=== PATIENT | male | born 1980 | race Two or more races ===

== ENCOUNTER 2024-10-01 19:14 | Emergency (ER) | payer MEDICAID, SELFPAY ==
[2024-10-01 19:34] VITALS: BP 158/85; PULSE 89; RESP 18; TEMP 36.6; O2SAT 97
--- NOTE | 2024-10-01 19:43 | XR_ITS ---
Examination: CT abdomen and pelvis without contrast. Coronal 3-D reconstructions. Sagittal 2-D reconstructions. Date and time of exam:October 01, 2024 2016 hrs. Indications: Lower abdominal pain with urination beginning 4 days ago CTDI: vol (mGy): 14.5 DLP: (mGycm): 897 Technique: Axial images of the abdomen have been obtained, 3 mm slice thickness Intravenous contrast material has not been administered. Low dose protocols were performed. One or more of the following dose reduction techniques were used; automated exposure control, adjustment of the mA and/or KV according to patient size, use of iterative reconstruction technique. Findings: Liver mildly irregular contour no focal liver lesions Contracted gallbladder No pancreatic or adrenal mass No splenic lesion No renal or ureteral calculi, no hydronephrosis Aorta normal size Normal appendix 15 mm fat-containing umbilical hernia No bowel obstruction Colonic diverticulosis, no diverticulitis Markedly abnormal thickening of the anterior urinary bladder wall, measuring up to 14 mm Transverse prostate dimension 4 cm : Bodies, soft tissue posterior to the lower lumbar spine Impression: No renal or ureteral calculi, no hydronephrosis Normal appendix Markedly abnormal thickening of the anterior urinary bladder wall, differential would include cystitis, early bladder carcinoma, recommend urology consultation
[2024-10-01 20:24] LABS: Collection Type, Urine Clean Catch; WBC,Urine 0 /hpf (0-5)
[2024-10-01 20:32] LABS: Basophils # (Auto) 0.1 Thou/mm3 (0.0-0.2); Basophils % (Auto) 1 % (0-2.5); Eosinophils # (Auto) 0.6 Thou/mm3 (0.0-0.5); Eosinophils % (Auto) 6 % (0-10); Hematocrit 44.1 % (41.0-53.0); Hemoglobin 15.1 g/dL (13.5-16.0); Immature Granulocytes % (Auto) 0 % (0-0); Immature Granulocytes Auto 0.04 Thou/mm3 (0.00-0.00); Lymphocytes # (Auto) 3.2 Thou/mm3 (1.0-4.8); Lymphocytes % (Auto) 31 % (10-50); Mean Corpuscular HGB Conc 34.2 g/dl (31.0-37.0); Mean Corpuscular Volume 85 fL (80-100); Monocytes # (Auto) 0.7 Thou/mm3 (0.0-0.8); Monocytes % (Auto) 6 % (0-12); Neutrophils # (Auto) 5.8 Thou/mm3 (1.8-7.7); Neutrophils % (Auto) 56 % (37-80); Nucleated Red Blood Cell % 0 /100 WBC (0); Platelet Count 237 Thou/mm3 (140-440); RDW Standard Deviation 42.2 fL (35.1-43.9); Red Blood Count 5.21 Miln/mm3 (4.50-5.90); White Blood Count 10.3 Thou/mm3 (3.8-10.6)
[2024-10-01 20:34] LABS: Bilirubin,Urine Negative (Negative); Blood,Urine Negative (Negative); Clarity,Urine Clear (Clear/Hazy); Color,Urine Colorless (Lt Yel-Yel); Culture Indicated,Urine Not Indicated; Glucose, Urine Negative (Negative); Ketones,Urine Negative (Negative); Leukocyte Esterase,Urine Negative (Negative); Nitrite,Urine Negative (Negative); Protein,Urine Negative (Neg - Trace); RBC,Urine < 1 /hpf (0-3); Specific Gravity,Urine 1.006 (1.001-1.035); Squamous Epithelial Cell,Urine < 1 /hpf (0-5); Urobilinogen,Urine Negative mg/dL (0.0-1.0)
[2024-10-01 20:41] LABS: Amphetamine/Methamp Scrn,U Negative (Negative); Barbiturate Screen,Urine Negative (Negative); Benzodiazepines Screen,Urine Negative (Negative); Benzoylecgonine Screen, Ur Negative (Negative); Fentanyl Screen,Urine Negative (Negative); Opiate Screen,Urine Negative (Negative); THC Screen,Urine Negative (Negative)
--- NOTE | 2024-10-01 20:44 | EDNOTE_ITS ---
ED Male Genitalurinary RME/HPI General Chief complaint: Abdominal Pain Stated complaint: LOWER ABD PAIN, PAIN IN URINATION Time Seen by Provider: 10/01/24 19:42 Arrival date/time: 10/01/24 19:14 44M with history of DM and alcohol use presents to ED with 10 days of lower ab/pelvic pain and dysuria. Patient denies testicular/genital pain, discharge, and concern for STD. Limitations: no limitations Related Data Home Medications ?Medication ?Instructions ?Recorded ?Confirmed chlordiazepoxide HCl 10 mg capsule 10 - 20 mg PO QID P RN ALCOHOL 09/17/13 WITHDRAWAL #0 caps ranitidine HCl 150 mg tablet 150 mg PO BID #0 tabs (Zantac) Previous Rx's ?Medication ?Instructions ?Recorded omeprazole 20 mg capsule,delayed 20 mg PO QAM #30 tabs 09/17/13 release ciprofloxacin HCl 500 mg tablet 500 mg PO BID #14 tabs 02/15/23 (Cipro) Allergies Allergy/AdvReac Type Severity Reaction Status Date / Time No Known Allergies Allergy Verified 10/01/24 20:46 Review of Systems Review of Systems Systems Reviewed: All systems reviewed, normal except as documented Constitutional Constitutional: Reports system reviewed and no additional complaints, except as documented, Denies fever(s) and Denies headache(s) ENT Ears, Nose, Mouth, and Throat: Denies disequilibrium and Denies headache(s) Cardiovascular Cardiovascular: Reports system reviewed and no additional complaints, except as documented, Denies chest pain and Denies dyspnea Respiratory Respiratory: Reports system reviewed and no additional complaints, except as documented, Denies cough and Denies dyspnea Gastrointestinal Gastrointestinal: Reports system reviewed and no additional complaints, except as documented, Denies abdominal pain, Denies nausea and Denies vomiting Genitourinary Genitourinary: Reports as per HPI, Reports dysuria and Reports flank pain Neurologic Neurologic: Reports system reviewed and no additional complaints, except as documented, Denies confusion, Denies disequilibrium and Denies headache(s) Psychiatric Psychiatric: Denies confusion Past Medical History Past Medical History CARDIAC: Negative Congestive Heart Failure RESPIRATORY: Negative Chronic Obstructive Pulmonary Disease (COPD) GENITOURINARY: Negative Renal Disease ENDOCRINE: Positive Diabetes Mellitus Type 2; Negative Diabetes Mellitus Type 1 Social History SMOKING STATUS: Never smoker ED Exam General Limitations: Present no limitations General appearance: Present alert and in no apparent distress Head Head exam: Present atraumatic Eye Eye exam: Present normal appearance, PERRL and EOMI ENT ENT exam: Present normal exam, normal oropharynx and mucous membranes moist Neck Neck exam: Present normal inspection, full ROM and trachea midline Chest Chest inspection: Present normal inspection and symmetric chest wall rise Respiratory Respiratory exam: Present normal lung sounds bilaterally Cardiovascular Cardiovascular exam: Present regular rate, normal rhythm and normal heart sounds Abdominal Exam Abdominal exam: Present soft and normal bowel sounds Extremities Exam Extremities exam: Present normal inspection and full ROM Back Exam Back exam: Present normal inspection and full ROM Neurological Exam Neurological exam: Present alert, oriented X3 and CN II-XII intact Psychiatric Psychiatric exam: Present normal affect and normal mood Skin Skin exam: Present warm, dry, intact and normal color Course Quality Measures none Orders Category Date Time Status CT abdomen pelvis wo con Stat Exams 10/01/24 19:43 Completed CBC Stat Lab 10/01/24 20:09 Completed CMP [Comprehensive Metabolic Panel] Stat Lab 10/01/24 20:09 Completed Drug Screen,Urine Stat Lab 10/01/24 20:08 Completed Lipase Stat Lab 10/01/24 20:09 Completed Urinalysis, C/S if Indicated Stat Lab 10/01/24 20:08 Completed Naproxen [Naprosyn] Med 10/01/24 21:23 Discontinued 500 mg PO X1 ONE Vital Signs Vital signs: Vital Signs Temperature 98 F 10/01/24 19:34 Pulse Rate 89 10/01/24 19:34 Respiratory Rate 18 10/01/24 19:34 Blood Pressure 158/85 H 10/01/24 19:34 Pulse Oximetry (%) 97 10/01/24 19:34 Oxygen Delivery Method Room Air 10/01/24 19:34 O2 at 97% on RA and WNLs Urogenital - Male MDM Narrative MDM Narrative:: 44M with history of DM and alcohol use presents to ED with 10 days of lower ab/pelvic pain and dysuria. Patient denies testicular/genital pain, discharge, and concern for STD. Physical exam reveals no ab/flank tenderness. Patient declines genital exam. Patient is afebrile, calm, and alert. CT reveals abnormally thickened bladder wall concerning for possible cystitis vs early cancer. UA clean. No leukocytosis. CMP unremarkable. Lipase mildly elevated, but no evidence of pancreatitis on CT and patient's symptoms are not epigastric. Felled Seam Operator Chainstitch given. Patient data External records reviewed:: [facility] previous records Clinical information provided by:: patient Social determinants that could affect healthcare access:: alcohol use Patient has the following chronic illnesses:: alcohol use and DM How is presenting disease/condition affected by chronic disease/condition?: exacerbated by Evaluation data The following diagnostics were reviewed and interpreted by me:: lab results and radiology exam(s) Lab and/or radiology exams considered but not ordered:: ordered Interpretation Summary: above Medications / Prescriptions Medications or Prescriptions considered but not ordered:: ordered Medication administrations:: Medication Administration History Discontinued Medications Naproxen (Naproxen 250 Mg Tablet) 500 mg PO X1 ONE Stop: 10/01/24 21:24 Last Admin: 10/01/24 21:30 Dose: 500 mg Documented By: CVL above Consultations Consultation(s) initiated? (list below): No Diagnosis Urogenital Male Differential Diagnosis: urinary tract infection, priapism, urethritis, epididymitis, genital herpes simplex, prostatitis, acute retention of urine, inguinal hernia and other (male concern for STD, kidney stone, dysuria and structural abnormality of bladder) Most likely diagnosis given after review of the tests above:: dysuria and structural abnormality of bladder Admission Indicated Admission indicated?: not indicated Admission Request Was there a request for admission?: No Disposition Plan Disposition Plan: Discharge Discharge Attestation Discharge Attestation: The patient and all family members were given an opportunity to ask questions and understood the discharge instructions. Discharge instructions specifically effects, indications for sooner follow up or return to the emergency department, and the expected course of current diagnosis. Patient condition: Stable Discharge Plan Plan Patient Disposition: HOME (Self Care) Disposition Comment: Stable Prescriptions/Referrals Prescriptions/Med Rec: No Action ranitidine HCl [Zantac] 150 MG tablet 150 mg PO BID Qty: 0 chlordiazepoxide HCl 10 MG capsule 10 - 20 mg PO QID PRN (Reason: ALCOHOL WITHDRAWAL) Qty: 0 omeprazole 20 MG capsule,delayed release(DR/EC) 20 mg PO QAM Qty: 30 0RF ciprofloxacin HCl [Cipro] 500 mg tablet 500 mg PO BID Qty: 14 0RF Referrals: Audi Ray [Primary Care Provider] - In 1 week Problem List Clinical Impression: Dysuria, Structural abnormality of bladder Patient/Caregiver Discharge Instructions Education Materials: ED Dysuria, Uncertain Cause (Adult) Additional Instructions: Please follow-up with PCP within 24-48 hours and return immediately if symptoms worsen. Recommend follow-up with urologist. Print Language: Kyrgyz Stand Alone Forms: Patient Portal Info Letter PA/POST PRODUCTION ASSISTANT Supervising Physician ALESSIO/DALILA Supervising Physician: Dr. Carpenter
[2024-10-01 20:48] LABS: Alanine Aminotransferase 36 U/L (10-49); Albumin, Serum 4.6 gm/dL (3.5-5.0); Albumin/Globulin Ratio 1.6 (1.2-2.2); Alkaline Phosphatase 120 U/L (46-116); Anion Gap 7 (7-16); Aspartate Amino Transferase 19 U/L (0-34); BUN/Creatinine Ratio 13 Ratio (12-20); Bilirubin,Total 0.3 mg/dL (0.3-1.2); Blood Urea Nitrogen 10 mg/dL (9-23); Calcium 9.6 mg/dL (8.3-10.6); Calcium (Corrected) 9.6 mg/dL (8.5-10.1); Carbon Dioxide 29.1 mMol/L (20.0-31.0); Chloride 107 mMol/L (98-107); Creatinine (Component) 0.8 mg/dL (0.6-1.3); Globulin 2.9 gm/dL (2.3-3.5); Glucose 99 mg/dL (74-106); Lipase 81 U/L (12-53); Osmolality,Calculated 283 (275-295); Potassium 4.6 mMol/L (3.4-5.1); Sodium 143 mMol/L (136-145); Total Protein 7.5 gm/dL (5.7-8.2); eGFR > 60 See Note
[2024-10-01] MEDS: NAPROXEN 250 MG TABLET 500 MG PO (21:30)
[2024-10-01 21:32] VITALS: RESP 18
== END 2024-10-01 21:33 | disposition home or self-care (01) ==
PROVIDERS: Physician Assistant; Emergency Provider Emergency Medicine; PCP Physician Assistant
DX: N32.89 Other specified disorders of bladder (principal)
CPT/HCPCS: 36415; 74176; 80053; 80307; 81001; 83690; 85025; 99284; A9270

== ENCOUNTER 2024-11-01 15:48 | Emergency (ER) | payer MEDICAID, SELFPAY ==
[2024-11-01 15:58] VITALS: BP 126/76; PULSE 113; TEMP 36.6; O2SAT 93; BMI 39.2
[2024-11-01 16:02] VITALS: RESP 18
[2024-11-01] MEDS: FAMOTIDINE INJ 10 MG/ML VIAL 2 ML 20 MG IVP (16:07)
--- NOTE | 2024-11-01 16:07 | PD.EDADULT ---
ED General RME/HPI General Chief complaint: Allergic Reaction Stated complaint: ALLERGIC REACTION WITH SOB Time Seen by Provider: 11/01/24 16:03 Arrival date/time: 11/01/24 15:48 CC: Allergic reaction HPI patient ate sardines. HPI approximately 20 minutes ago he ingested the face patient now has hives all over his face his lips his chest anterior and posterior in his upper arms. Patient states he has eaten fish before but is never had a reaction like this patient denies any shortness of breath or difficulty breathing he has no exertional dyspnea wheezing. Related Data Home Medications ?Medication ?Instructions ?Recorded ?Confirmed chlordiazepoxide HCl 10 mg capsule 10 - 20 mg PO QID PRN ALCOHOL 09/17/13 WITHDRAWAL #0 caps ranitidine HCl 150 mg tablet 150 mg PO BID #0 tabs 09/17/13 (Zantac) Previous Rx's ?Medication ?Instructions ?Recorded omeprazole 20 mg capsule,delayed 20 mg PO QAM #30 tabs 09/17/13 release ciprofloxacin HCl 500 mg tablet 500 mg PO BID #14 tabs 02/15/23 (Cipro) diphenhydramine HCl 25 mg capsule 25 mg PO TID PRN allergic reaction 11/01/24 #30 caps famotidine 20 mg tablet 20 mg PO QDAY #10 tabs 11/01/24 prednisone 50 mg tablet 50 mg PO BID #6 tabs 11/01/24 Allergies Allergy/AdvReac Type Severity Reaction Status Date / Time Fish Containing Products Allergy Intermediate Hives Verified 11/01/24 15:52 Review of Systems Review of Systems Narrative Review of Systems: GEN: No fever, no chills, no weight loss EYES: No discharge, no visual changes, no pain HEENT: No ear pain, no congestion, no sore throat PULM: No shortness of breath, no cough, no congestion CV: No chest pain, no dyspnea on exertion, no palpitations GI: No nausea, no vomiting, no diarrhea, no pain, no constipation : No frequency, no urgency, no dysuria MUSC/SKEL: No joint pain, no back pain SKIN: Hives, no rash PSYCH: No hallucinations, no depression HEME/LYMPH: No easy bleeding or bruising tendencies NEURO: No weakness, no headache Past Medical History Past Medical History CARDIAC: Negative Congestive Heart Failure RESPIRATORY: Negative Chronic Obstructive Pulmonary Disease (COPD) GENITOURINARY: Negative Renal Disease ENDOCRINE: Positive Diabetes Mellitus Type 2; Negative Diabetes Mellitus Type 1 Social History SMOKING STATUS: Never smoker ED Exam Narrative Physical exam: [General: Obese in moderate discomfort not in any acute distress Head normocephalic HEENT: Eyes pupils are PERRLA EOMs are intact nose no nasal flaring mouth pink moist membranes uvula is pink, uvula is normal size no oral edema. No oral asymmetry. All other subsystems ATTR within acceptable limits Neck is supple nontender, thick neck, no stridor. Chest equal chest rise nontender to palpation Respiratory: Clear to auscultation no wheezes crackles or rubs CV: Rate rhythm is regular no murmurs rubs or clicks Abdomen is distended secondary to body habitus soft nontender no masses positive bowel sounds all 4 quadrants Back: No CVA tenderness no spinous process tenderness from cervical spine thoracic and lumbar spine Skin: Hives to the upper back chest neck face with by upper and lower lip edema symmetrical in size. Hives also noticed in the upper inner arms. No axilla palm or sole involvement no hairline or scalp involvement. Otherwise skin is intact no petechiae rash induration ulceration or crepitus Extremities: Moving all extremity against resistance cap refill less than 2 seconds neurosensory intact Neuro: Awake alert oriented x3 Glascow coma 15 no focal deficits] Course Course Course Narrative: At 1618, the patient is faring better, the hives and the erythema began to reduce in the face after administration of medications. Patient vehemently denies allergy to sardines we suspect then the patient had eaten sardines and a tomato sauce and a 10, there may be multiple ingredients in these that may have triggered this. Patient has no respiratory distress, oxygen saturation is 97% on 2 L patient is speaking in full sentences no stridor. We will observe this patient for some time. At 1815 the patient is doing much better although his hives have resolved facial swelling is resolved he still has minimal lip swelling but no circumoral edema no oral edema no difficulty breathing or shortness of breath. At this time comfortable discharging the patient home. Patient is good to be discharged home on steroids and famotidine. He is also advised to continue take Benadryl. Quality Measures none Orders Category Date Time Status CBC Stat Lab 11/01/24 16:23 Completed CMP [Comprehensive Metabolic Panel] Stat Lab 11/01/24 16:23 Completed DiphenhydrAMINE INJ [Benadryl Inj] Med 11/01/24 16:03 Discontinued 50 mg IVP X1 ONE Famotidine Inj [Pepcid Inj] Med 11/01/24 16:03 Discontinued 20 mg IVP X1 ONE MethylPREDNISolone.* [SoluMEDROL Inj] Med 11/01/24 16:03 Discontinued 125 mg IVP X1 ONE Vital Signs Vital signs: Vital Signs Temperature 97.9 F 11/01/24 15:58 Pulse Rate 113 H 11/01/24 15:58 Blood Pressure 126/76 11/01/24 15:58 Pulse Oximetry (%) 93 L 11/01/24 15:58 Oxygen Delivery Method Room Air 11/01/24 15:58 [facility] Patient data External records reviewed:: [facility] previous records Clinical information provided by:: patient Social determinants that could affect healthcare access:: none Patient has the following chronic illnesses:: Obesity How is presenting disease/condition affected by chronic disease/condition?: uneffected by Evaluation data The following diagnostics were reviewed and interpreted by me:: lab results Lab and/or radiology exams considered but not ordered:: CBC shows no acute leukocytosis anemia thrombocytopenia CMP shows no acute electrolyte imbalance renal impairment transaminitis or T. bili elevation. Interpretation Summary: Food allergy hives Medications Medications considered but not ordered:: None Medication administrations:: Medication Administration History Discontinued Medications Diphenhydramine HCl (Diphenhydramine Inj 50 Mg/Ml Vial) 50 mg IVP X1 ONE Stop: 11/01/24 16:04 Last Admin: 11/01/24 16:08 Dose: 50 mg Documented By: KAYLA Famotidine (Famotidine Inj 10 Mg/Ml Vial 2 Ml) 20 mg IVP X1 ONE Stop: 11/01/24 16:04 Last Admin: 11/01/24 16:07 Dose: 20 mg Documented By: KAYLA Methylprednisolone Sodium Succinate (Methylprednisolone Sod Succ 62.5 Mg/Ml 2ml Vial) 125 mg IVP X1 ONE Stop: 11/01/24 16:04 Last Admin: 11/01/24 16:08 Dose: 125 mg Documented By: KAYLA None Consultations Consultation(s) initiated? (list below): No Diagnosis Differential Diagnosis ED Complaint MDM: Anaphylaxis angioedema Food allergy Most likely diagnosis given after review of the tests above:: Food allergy hives Admission Indicated Admission indicated?: not indicated Explain why admission is indicated or not indicated:: Stable for discharge Admission Request Was there a request for admission?: No Disposition Plan Disposition Plan: Discharge Discharge Attestation Discharge Attestation: The patient and all family members were given an opportunity to ask questions and understood the discharge instructions. Discharge instructions specifically effects, indications for sooner follow up or return to the emergency department, and the expected course of current diagnosis. Patient condition: Stable Medical Decision Making Differential Diagnosis Differential Diagnosis: Anaphylaxis angioedema Food allergy Lab Data 11/01/24 16:23 11/01/24 16:23 Labs: Lab Results 11/01/24 Range/Units 16:23 WBC 8.0 (3.8-10.6) Thou/mm3 RBC 5.51 (4.50-5.90) Miln/mm3 Hgb 16.1 H (13.5-16.0) g/dL Hct 45.3 (41.0-53.0) % MCV 82 (80-100) fL MCH 29.2 (25.0-35.0) pg MCHC 35.5 (31.0-37.0) g/dl RDW Std Deviation 38.6 (35.1-43.9) fL Plt Count 231 (140-440) Thou/mm3 Neut % (Auto) 49 (37-80) % Lymph % (Auto) 37 (10-50) % [place] % (Auto) 8 (0-12) % Eos % (Auto) 5 (0-10) % Baso % (Auto) 1 (0-2.5) % Neut # (Auto) 3.9 (1.8-7.7) Thou/mm3 Lymph # (Auto) 3.0 (1.0-4.8) Thou/mm3 [place] # (Auto) 0.6 (0.0-0.8) Thou/mm3 Eos # (Auto) 0.4 (0.0-0.5) Thou/mm3 Baso # (Auto) 0.1 (0.0-0.2) Thou/mm3 Immature Gran # (Auto) 0.02 H (0.00-0.00) Thou/mm3 Absolute Nucleated RBC 0.00 (0.00-0.00) Thou/mm3 Immature Gran % 0 (0-0) % Nucleated RBC % 0 (0) /100 WBC Sodium 137 (136-145) mMol/L Potassium 3.7 (3.4-5.1) mMol/L Chloride 103 (98-107) mMol/L Carbon Dioxide 25.4 (20.0-31.0) mMol/L Anion Gap 9 (7-16) BUN 15 (9-23) mg/dL Creatinine 0.9 (0.6-1.3) mg/dL Estim Creat Clear Calc 118.0 (>60) mL/min eGFR > 60 (60 - ) See Note BUN/Creatinine Ratio 17 (12-20) Ratio Glucose 83 (74-106) mg/dL Calculated Osmolality 273 L (275-295) Calcium 8.9 (8.3-10.6) mg/dL Corrected Calcium 8.9 (8.5-10.1) mg/dL Total Bilirubin 0.8 (0.3-1.2) mg/dL AST 18 (0-34) U/L ALT 15 (10-49) U/L Alkaline Phosphatase 100 (46-116) U/L Total Protein 7.4 (5.7-8.2) gm/dL Albumin 4.2 (3.5-5.0) gm/dL Globulin 3.2 (2.3-3.5) gm/dL Albumin/Globulin Ratio 1.3 (1.2-2.2) Discharge Plan Plan Patient Disposition: HOME (Self Care) Patient condition on transfer: Stable Prescriptions/Referrals Prescriptions/Med Rec: New prednisone 50 mg tablet 50 mg PO BID Qty: 6 0RF famotidine 20 mg tablet 20 mg PO QDAY Qty: 10 0RF diphenhydramine HCl 25 mg capsule 25 mg PO TID PRN (Reason: allergic reaction) Qty: 30 0RF No Action ranitidine HCl [Zantac] 150 MG tablet 150 mg PO BID Qty: 0 chlordiazepoxide HCl 10 MG capsule 10 - 20 mg PO QID PRN (Reason: ALCOHOL WITHDRAWAL) Qty: 0 omeprazole 20 MG capsule,delayed release(DR/EC) 20 mg PO QAM Qty: 30 0RF ciprofloxacin HCl [Cipro] 500 mg tablet 500 mg PO BID Qty: 14 0RF Referrals: Mukul Griffin MD [Physician] - In 1 week No Primary/Family,Physician [Primary Care Provider] - In 1 week Problem List Clinical Impression: Allergic reaction, Hives Patient/Caregiver Discharge Instructions Education Materials: ED Hives (Adult) Additional Instructions: Take the medication as prescribed with is worsening of the symptoms you had return immediately to the emergency room for reevaluation. Print Language: Lithuanian Stand Alone Forms: Rhoda Award Info., Patient Portal Info Letter, Work/School Release PA/AIRLINE OPERATIONS AGENT Supervising Physician PA/AIRLINE OPERATIONS AGENT Supervising Physician: Dayana Lama ENP
[2024-11-01] MEDS: DiphenhydrAMINE INJ 50 MG/ML VIAL IVP (16:08)
[2024-11-01] MEDS: MethylPREDNISolone SOD SUCC 62.5 MG/ML 2ML VIAL 125 MG IVP (16:08)
[2024-11-01 16:30] LABS: Basophils # (Auto) 0.1 Thou/mm3 (0.0-0.2); Basophils % (Auto) 1 % (0-2.5); Eosinophils # (Auto) 0.4 Thou/mm3 (0.0-0.5); Eosinophils % (Auto) 5 % (0-10); Hematocrit 45.3 % (41.0-53.0); Hemoglobin 16.1 g/dL (13.5-16.0); Immature Granulocytes % (Auto) 0 % (0-0); Immature Granulocytes Auto 0.02 Thou/mm3 (0.00-0.00); Lymphocytes % (Auto) 37 % (10-50); Mean Corpuscular HGB Conc 35.5 g/dl (31.0-37.0); Mean Corpuscular Hemoglobin 29.2 pg (25.0-35.0); Mean Corpuscular Volume 82 fL (80-100); Monocytes # (Auto) 0.6 Thou/mm3 (0.0-0.8); Monocytes % (Auto) 8 % (0-12); Neutrophils # (Auto) 3.9 Thou/mm3 (1.8-7.7); Neutrophils % (Auto) 49 % (37-80); Nucleated Red Blood Cell % 0 /100 WBC (0); Platelet Count 231 Thou/mm3 (140-440); RDW Standard Deviation 38.6 fL (35.1-43.9); Red Blood Count 5.51 Miln/mm3 (4.50-5.90)
[2024-11-01 16:48] LABS: Alanine Aminotransferase 15 U/L (10-49); Albumin, Serum 4.2 gm/dL (3.5-5.0); Albumin/Globulin Ratio 1.3 (1.2-2.2); Alkaline Phosphatase 100 U/L (46-116); Anion Gap 9 (7-16); Aspartate Amino Transferase 18 U/L (0-34); BUN/Creatinine Ratio 17 Ratio (12-20); Bilirubin,Total 0.8 mg/dL (0.3-1.2); Blood Urea Nitrogen 15 mg/dL (9-23); Calcium 8.9 mg/dL (8.3-10.6); Calcium (Corrected) 8.9 mg/dL (8.5-10.1); Carbon Dioxide 25.4 mMol/L (20.0-31.0); Chloride 103 mMol/L (98-107); Creatinine (Component) 0.9 mg/dL (0.6-1.3); Globulin 3.2 gm/dL (2.3-3.5); Glucose 83 mg/dL (74-106); Osmolality,Calculated 273 (275-295); Potassium 3.7 mMol/L (3.4-5.1); Sodium 137 mMol/L (136-145); Total Protein 7.4 gm/dL (5.7-8.2); eGFR > 60 See Note
[2024-11-01 18:21] VITALS: BP 113/71; PULSE 93; RESP 18; TEMP 37; O2SAT 95
== END 2024-11-01 18:45 | disposition home or self-care (01) ==
PROVIDERS: Registered Nurse General Practice; Emergency Provider Family Medicine
DX: T78.1XXA Other adverse food reactions, not elsewhere classified, initial encounter (principal); L50.9 Urticaria, unspecified
CPT/HCPCS: 36415; 80053; 85025; 96374; 96375; 99284; J1200; J2919; J3490

== ENCOUNTER 2024-12-08 07:29 | Emergency (ER) | payer MEDICAID, SELFPAY ==
[2024-12-08] VITALS (16 sets, daily range): BP systolic 148–196; BP diastolic 81–123; PULSE 101–122; RESP 17–95; TEMP 36.3–36.8; O2SAT 92–98; BMI 38.9
--- NOTE | 2024-12-08 07:32 | EKG_ITS ---
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
--- NOTE | 2024-12-08 07:44 | XR_ITS ---
Examination: PA lateral chest 2 views TECHNIQUE: Upright PA lateral chest 2 views Date and time: December 08, 2024 0903 hours Comparison April 30, 2014 INDICATIONS: Chest pain today. FINDINGS: The film is degraded by patient motion Mild prominence of ventricle Mild scarring versus pneumonia in the lingular segment No pulmonary edema IMPRESSION: Scarring versus mild pneumonia in the lingular segment, clinical correlation advised
--- NOTE | 2024-12-08 07:45 | PD.EDRME ---
Rapid Medical Screening Exam E Arrival date/time: 12/08/24 07:29 This is a 44-year-old male that comes in with complaints of chest pain and shortness of breath. Patient states that he is an alcoholic but stopped drinking for some time now. Patient states that he has been drinking every day for the past 10 days. Patient also reports that he did crystal meth about 2 days ago. Patient states since then has had chest pain. Patient complains of tremors. Patient last drink was last night per patient. Patient wants to stop drinking. I have greeted and performed a focused initial assessment of this patient. Initial appropriate labs ordered at this time. A comprehensive ED assessment and evaluation of the patient and analysis of all test and completion of medical decision making process will be conducted by additional ED provider. Chief Complaint: Chest Pain Time Seen by Provider: 12/08/24 07:35 Vital signs: Vital Signs Temperature 98.1 F 12/08/24 07:37 Pulse Rate 110 H 12/08/24 07:37 Respiratory Rate 20 12/08/24 07:37 Blood Pressure 157/94 H 12/08/24 07:37 Pulse Oximetry (%) 97 12/08/24 07:37 Oxygen Delivery Method Room Air 12/08/24 07:37
[2024-12-08] MEDS: LORazepam 0.5 MG TABLET 1 MG PO (07:52)
[2024-12-08 08:09] LABS: Basophils # (Auto) 0.1 Thou/mm3 (0.0-0.2); Basophils % (Auto) 1 % (0-2.5); Eosinophils # (Auto) 0.5 Thou/mm3 (0.0-0.5); Eosinophils % (Auto) 5 % (0-10); Hematocrit 45.2 % (41.0-53.0); Immature Granulocytes % (Auto) 0 % (0-0); Immature Granulocytes Auto 0.04 Thou/mm3 (0.00-0.00); Lymphocytes # (Auto) 2.7 Thou/mm3 (1.0-4.8); Lymphocytes % (Auto) 29 % (10-50); Mean Corpuscular HGB Conc 35.4 g/dl (31.0-37.0); Mean Corpuscular Volume 82 fL (80-100); Monocytes # (Auto) 0.7 Thou/mm3 (0.0-0.8); Monocytes % (Auto) 8 % (0-12); Neutrophils # (Auto) 5.1 Thou/mm3 (1.8-7.7); Neutrophils % (Auto) 57 % (37-80); Nucleated Red Blood Cell % 0 /100 WBC (0); Platelet Count 272 Thou/mm3 (140-440); RDW Standard Deviation 40.5 fL (35.1-43.9); Red Blood Count 5.51 Miln/mm3 (4.50-5.90); White Blood Count 9.1 Thou/mm3 (3.8-10.6)
[2024-12-08 08:33] LABS: B-Type Natriuretic Peptide < 20 pg/mL (0-100)
[2024-12-08 08:34] LABS: Alanine Aminotransferase 53 U/L (10-49); Albumin, Serum 4.8 gm/dL (3.5-5.0); Albumin/Globulin Ratio 1.4 (1.2-2.2); Alkaline Phosphatase 97 U/L (46-116); Anion Gap 8 (7-16); Aspartate Amino Transferase 70 U/L (0-34); BUN/Creatinine Ratio 7 Ratio (12-20); Bilirubin,Total 0.5 mg/dL (0.3-1.2); Blood Urea Nitrogen < 5 mg/dL (9-23); Calcium 9.7 mg/dL (8.3-10.6); Calcium (Corrected) 9.7 mg/dL (8.5-10.1); Chloride 100 mMol/L (98-107); Creatinine (Component) 0.7 mg/dL (0.6-1.3); Estimated Creatinine Clearance 151.2 mL/min (>60); Globulin 3.4 gm/dL (2.3-3.5); Glucose 104 mg/dL (74-106); Osmolality,Calculated 267 (275-295); Potassium 4.8 mMol/L (3.4-5.1); Sodium 135 mMol/L (136-145); Total Protein 8.2 gm/dL (5.7-8.2); Troponin I < 0.020 ng/mL (0.0-0.045); eGFR > 60 See Note
[2024-12-08 08:43] LABS: Amphetamine/Methamp Scrn,U Positive (Negative); Barbiturate Screen,Urine Negative (Negative); Benzodiazepines Screen,Urine Negative (Negative); Benzoylecgonine Screen, Ur Negative (Negative); Fentanyl Screen,Urine Negative (Negative); Opiate Screen,Urine Negative (Negative); THC Screen,Urine Negative (Negative)
--- NOTE | 2024-12-08 09:34 | PD.EDCHEST ---
ED Chest Pain RME/HPI General Chief Complaint: Chest Pain Stated Complaint: CHEST PAIN Time Seen by Provider: 12/08/24 07:35 Arrival date/time: 12/08/24 07:29 RME / HPI RME / HPI narrative: 12/08/24 07:29 This is a 44-year-old male that comes in with complaints of chest pain and shortness of breath. Patient states that he is an alcoholic but stopped drinking for some time now. Patient states that he has been drinking every day for the past 10 days. Patient also reports that he did crystal meth about 2 days ago. Patient states since then has had chest pain. Patient complains of tremors. Patient last drink was last night per patient. Patient wants to stop drinking. I have greeted and performed a focused initial assessment of this patient. Initial appropriate labs ordered at this time. A comprehensive ED assessment and evaluation of the patient and analysis of all test and completion of medical decision making process will be conducted by additional ED provider. DR. BROOKS MAIN ED EVALUATION: 44 year old male presents to the Emergency Department with complaints of little chest pain and tremors. Patient states he stopped drinking and now is having tremors, similar symptoms in the past. He also admits to using methamphetamine, last used 2 days ago. He also reported occasional shortness of breath. Related Data Home Medications ?Medication ?Instructions ?Recorded ?Confirmed chlordiazepoxide HCl 10 mg capsule 10 - 20 mg PO QID PRN ALCOHOL 09/17/13 WITHDRAWAL #0 caps ranitidine HCl 150 mg tablet 150 mg PO BID #0 tabs 09/17/13 (Zantac) Previous Rx's ?Medication ?Instructions ?Recorded omeprazole 20 mg capsule,delayed 20 mg PO QAM #30 tabs 09/17/13 release ciprofloxacin HCl 500 mg tablet 500 mg PO BID #14 tabs 02/15/23 (Cipro) diphenhydramine HCl 25 mg capsule 25 mg PO TID PRN allergic reaction 11/01/24 #30 caps famotidine 20 mg tablet 20 mg PO QDAY #10 tabs 11/01/24 prednisone 50 mg tablet 50 mg PO BID #6 tabs 11/01/24 Allergies Allergy/AdvReac Type Severity Reaction Status Date / Time Fish Containing Products Allergy Intermediate Hives Verified 12/08/24 07:31 Review of Systems Review of Systems Systems Reviewed: All systems reviewed, normal except as documented Narrative Review of Systems: GEN: No fever, no chills, no weight loss EYES: No discharge, no visual changes, no pain HEENT: No ear pain, no congestion, no sore throat PULM: + occasional shortness of breath, no cough, no congestion CV: + little chest pain, no dyspnea on exertion, no palpitations GI: No nausea, no vomiting, no diarrhea, no pain, no constipation : No frequency, no urgency and no dysuria MUSC/SKEL: No joint pain, no back pain SKIN: No rash PSYCH: No hallucinations, no depression HEME/LYMPH: No easy bleeding or bruising tendencies NEURO: No weakness, no headache, + tremors (see HPI) Past Medical History Past Medical History ENDOCRINE: Positive Diabetes Mellitus Type 2 Social History SMOKING STATUS: Current every day smoker SUBSTANCE USE: methamphetamine ALCOHOL: Current ED Exam Narrative Physical exam: GENERAL APPEARANCE: alert and oriented x 4, well-developed, well-nourished, no acute distress, slightly tremulous VITALS: All vitals were reviewed and the pulse ox is 94% on room air, which is normal according to my interpretation. HEENT: Normocephalic, atraumatic; pupils equal, round, reactive to light; EOMI; mucous membranes pink, moist; oropharynx clear NECK: Supple LUNGS: CTABL; no wheezes, no rales, no rhonchi HEART: Tachycardic, regular rhythm; normal S1, S2; no murmurs ABDOMEN: non distended; normal BS; soft, no tenderness, no guarding, no rebound; no masses, no organomegaly, no hernia BACK: no CVA tenderness EXTREMITIES: atraumatic; no edema NEUROLOGIC: awake; alert and oriented x4; cranial nerves II-XII grossly intact; no focal sensory or motor deficits; slightly tremulous PSYCHIATRIC: appropriate mood and affect SKIN: warm, dry, normal color; no rashes Course Quality Measures none Orders Category Date Time Status EKG (ED ONLY) *Do not use* NOW Care 12/08/24 07:32 Completed EKG (ED Only) Stat Exams 12/08/24 07:32 Draft XR chest 2V Stat Exams 12/08/24 07:44 Completed Alcohol, Blood Medical Stat Lab 12/08/24 07:50 Completed BNP [B-Type Natriuretic Peptide] Stat Lab 12/08/24 07:50 Completed CBC Stat Lab 12/08/24 07:50 Completed Comprehensive Metabolic Panel Stat Lab 12/08/24 07:50 Completed Drug Screen,Urine Stat Lab 12/08/24 07:58 Completed Troponin I Stat Lab 12/08/24 07:50 Completed LORazepam [Ativan Inj] Med 12/08/24 09:31 Discontinued 2 mg IVP X1 ONE LORazepam [Ativan] Med 12/08/24 07:44 Discontinued 1 mg PO X1 ONE Vital Signs Vital signs: Vital Signs Temperature 98.1 F 12/08/24 07:37 Pulse Rate 110 H 12/08/24 07:37 Respiratory Rate 20 12/08/24 07:37 Blood Pressure 157/94 H 12/08/24 07:37 Pulse Oximetry (%) 97 12/08/24 07:37 Oxygen Delivery Method Room Air 12/08/24 07:37 Chest Pain MDM Narrative MDM Narrative:: Madeleine Antoine am scribing for and in the presence of Dr. Brooks. Patient data External records reviewed:: [facility] previous records (Reviewed last ED visit dated 11/01/24, discharged with the following: Allergic reaction) Clinical information provided by:: patient Social determinants that could affect healthcare access:: substance use (Methamphetamine and alcohol abuse. ) Patient has the following chronic illnesses:: Denies any PMHx, surgeries, or daily medications. Methamphetamine and alcohol abuse. How is presenting disease/condition affected by chronic disease/condition?: no chronic disease Evaluation data The following diagnostics were reviewed and interpreted by me:: lab results, radiology exam(s) and EKG tracing(s) (EKG#1: EKG at 0736 hours. Interpreted by me: sinus tachycardia, rate 110, Q waves in leads 2, 3, and AVF) Lab and/or radiology exams considered but not ordered:: none Interpretation Summary: Procedure(s): XR chest 2V Accession Number(s): [id number] cc: Audi Millan; Tahir Murillo MD; Emi Patton NP~ Examination: PA lateral chest 2 views TECHNIQUE: Upright PA lateral chest 2 views Date and time: December 08, 2024 0903 hours Comparison April 30, 2014 INDICATIONS: Chest pain today. FINDINGS: The film is degraded by patient motion Mild prominence of ventricle Mild scarring versus pneumonia in the lingular segment No pulmonary edema IMPRESSION: Scarring versus mild pneumonia in the lingular segment, clinical correlation advised Dictated By: Tahir Murillo MD Medications / Prescriptions Medications or Prescriptions considered but not ordered:: none Medication administrations:: Medication Administration History Discontinued Medications Lorazepam (Lorazepam 0.5 Mg Tablet) 1 mg PO X1 ONE Stop: 12/08/24 07:45 Last Admin: 12/08/24 07:52 Dose: 1 mg Documented By: MARK Lorazepam (Lorazepam 2 Mg/Ml Vial) 2 mg IVP X1 ONE Stop: 12/08/24 09:32 Last Admin: 12/08/24 09:45 Dose: 2 mg Documented By: JOSH see above Consultations Consultation(s) initiated? (list below): Yes Consultation #1 (Physician, Specialty, Details): Discussed test HPI, PMHx, lab, radiology results and/or management with resident working with the hospitalist. Will admit for further evaluation and management. Accepts patient for admission. Time: 11:48 Diagnosis Most likely diagnosis given after review of the tests above:: Alcohol abuse with withdrawals Admission Indicated Admission indicated?: indicated Admission Request Was there a request for admission?: Yes Admission Attestation Admission request attestation: Discussed case with [] from Hospitalist service regarding admission. Discussed patients ED course, exam findings, labs, and radiology results. The Hospitalist [agrees,declines] to accept the patient for admission. Disposition Plan Disposition Plan: Admit Discharge Plan Plan Patient Disposition: Admit Acute Care w/in Hospital Prescriptions/Referrals Prescriptions/Med Rec: No Action ranitidine HCl [Zantac] 150 MG tablet 150 mg PO BID Qty: 0 chlordiazepoxide HCl 10 MG capsule 10 - 20 mg PO QID PRN (Reason: ALCOHOL WITHDRAWAL) Qty: 0 omeprazole 20 MG capsule,delayed release(DR/EC) 20 mg PO QAM Qty: 30 0RF ciprofloxacin HCl [Cipro] 500 mg tablet 500 mg PO BID Qty: 14 0RF prednisone 50 mg tablet 50 mg PO BID Qty: 6 0RF famotidine 20 mg tablet 20 mg PO QDAY Qty: 10 0RF diphenhydramine HCl 25 mg capsule 25 mg PO TID PRN (Reason: allergic reaction) Qty: 30 0RF Referrals: Audi Ray [Primary Care Provider] - In 1 week Problem List Clinical Impression: Alcohol abuse with withdrawal Patient/Caregiver Discharge Instructions Print Language: Georgian Stand Alone Forms: [facility]oda Award Info., Patient Portal Info Letter
[2024-12-08] MEDS: LORazepam 2 MG/ML VIAL IVP (09:45)
[2024-12-08 10:15] LABS: Alcohol, Blood Medical 17.7 mg/dL (0-10.0)
--- NOTE | 2024-12-08 11:58 | XR_ITS ---
Examination: Abdomen sonogram, Limited Date and time of exam: December 08, 2024 1251 hours INDICATIONS: Alcohol abuse history, elevated liver function tests on laboratory examination today Technique: Real-time giles scale transabdominal sonographic images of the upper abdomen obtained. Findings: No gallstones. Gallbladder wall 0.40 cm no edema Common bile duct 0.3 cm Pancreatic head 3.1 cm Liver 17.5 cm fatty infiltration Normal hepatopedal portal venous flow Patent IVC IMPRESSION: Negative for cholelithiasis Borderline thickening gallbladder wall 0.4 cm, clinical correlation advised, consider HIDA scan or MRCP follow-up as clinically warranted Mild hepatic megaly fatty liver
--- NOTE | 2024-12-08 11:59 | ESHP_ITS ---
<Statement entered by Yenifer Whaley MD - 12/08/24 17:49> Patient is a 44-year-old male with past medical history significant for alcohol use disorder and hypertension and admitted to the hospital today after complaining of chest pain x 3 days and binge drinking for the last 10 days. Patient endorses drinking 18 cans of beer daily. Last alcoholic drink was yesterday. Patient also confirms his last use of meth was on 12/04/2024. Associated symptoms also include LUQ pain, tremors, and anxiety. Patient was admitted for further management of acute alcohol withdrawal and transaminitis. Shortly after patient was admitted, patient stated that he felt much better, and all risks were relayed to patient at that time prior to leaving AGAINST MEDICAL ADVICE. Patient understands the risk including by leaving AGAINST MEDICAL ADVICE. I discussed with and supervised the editing internship physician who took care of this patient. I personally saw and examined the patient and discussed the assessment and plan with the entire medicine team, including my attending Dr. Bradley, I agree with most of the assessment and plan as documented below Yenifer Whaley M.D. PGY-2 Disclaimer: Despite multiple revisions, due to the dictation software being used, the document bellow may not be free of grammatical errors including phonetic/typographic errors. However, this does not deter from our commitment to providing health care in the patient's best interest in mind. Documentation for date of: 12/08/24 HPI History of Present Illness Chief complaint: alcohol withdrawal History of present illness: 44-year-old male with past medical history of alcohol use disorder was admitted to the hospital on 12/08/2024 after coming to the ED with complaints of chest pain and episode of binge drinking for 10 days where he drank 18 cans of beer every day. Patient stated that his last drink was yesterday around midnight and that he developed his chest pain around Saturday. He mentioned that he last used meth on Saturday. He also stated that he felt nauseated and started feeling like tremors and anxious as well that is why he came to the ER. He denies any shortness of breath, blood in the stool, vomiting, or bloody emesis. ED course: Initially came in hypertensive and tachycardic. Initial labs were unremarkable other than his liver enzymes which were mildly elevated with AST of 70 and ALT of 53. Ammonia levels were less than 10 and his urine was positive for meth and alcohol. Initial imaging included EKG which showed sinus tachycardia and chest x-ray which did show some possible mild pneumonia and liver ultrasound which showed some hepatomegaly. PMH: As above Social Hx: Denies any smoking, admits meth use and alcohol use. Medications: None per patient Review of Systems Review of Systems Narrative Review of Systems: Constitutional: Denies sweats, Denies weight loss/gain, Denies fever, Denies chills. HEENT: Denies hearing loss, Denies ear pain, Denies postnasal drip, Denies double vision, Denies blurry vision. Respiratory: Denies shortness of breath, Denies cough, Denies wheezing. Cardiovascular: Admits chest pain, Denies palpitations, Denies sudden loss of consciousness. GI: Denies blood in stool, Denies constipation, Denies abdominal pain, Denies difficulty swallowing, Admits nausea, denies vomit. : Denies urinary incontinence, Denies pain while urinating, Denies increased urinary frequency. MSK: Denies joint pain, Denies joint swelling, Denies numbness. Skin: Denies rash, Denies itching, Denies easy bruising. Neuro: Denies headaches, Denies dizziness, Denies seizures. Past Medical History Past Medical History ENDOCRINE: Positive Diabetes Mellitus Type 2 Social History SMOKING STATUS: Current every day smoker SUBSTANCE USE: methamphetamine ALCOHOL: Current Exam Vital Signs Temp Pulse Resp BP Pulse Ox O2 Del Method 98.3 F 118 H 20 156/110 H 92 L Room Air 12/08/24 08:50 12/08/24 11:30 12/08/24 11:30 12/08/24 11:30 12/08/24 11:30 12/08/24 08:50 Narrative Exam General: A/O x3, no acute distress, obese Eyes: PERRL, EOMI. Anicteric, vision grossly intact. Ears: No ear pain, no ear discharge, Hearing grossly intact. Nose: No nasal discharge. Mouth/Throat: Dry mucous membranes, no redness, no lesions. Neck: Neck supple, non-tender, no cervical lymphadenopathy. Lungs: Clear TRACEY to auscultation and percussion, No accessory muscle use. Cardio: Normal S1/S2, regular rhythm, tachy, no murmurs, no JVD Abdomen: Soft, non-tender, but distended, no palpable masses, peristalsis present, no guarding or rebound. Extremities: Symmetrical, no significant deformities, no peripheral edema , non-tender, peripheral pulses presents. Skin: No rashes, no lesions, warm to touch. Neuro: No focal neurological deficits. motor and sensory intact, some mild tremors in TRACEY hands were felt, but not visible. Psych: Cooperative, appropriate mood and effect. Results: Labs 12/08/24 07:50 12/08/24 07:50 Labs: Short CBC 12/08/24 Range/Units 07:50 WBC 9.1 (3.8-10.6) Thou/mm3 Hgb 16.0 (13.5-16.0) g/dL Hct 45.2 (41.0-53.0) % Plt Count 272 D (140-440) Thou/mm3 BMP 12/08/24 07:50 Sodium 135 L Potassium 4.8 Chloride 100 Carbon Dioxide 27.0 BUN < 5 L Creatinine 0.7 Glucose 104 Calcium 9.7 Cardiac Enzymes 12/08/24 Range/Units 07:50 Troponin I < 0.020 (0.0-0.045) ng/mL Liver Function 12/08/24 Range/Units 07:50 Total Bilirubin 0.5 (0.3-1.2) mg/dL AST 70 H (0-34) U/L ALT 53 H (10-49) U/L Alkaline Phosphatase 97 (46-116) U/L Albumin 4.8 (3.5-5.0) gm/dL Quality Measures Quality Measures none Medications Home Medications and Allergies Home Medications ?Medication ?Instructions ?Recorded ?Confirmed ?Type chlordiazepoxide HCl 10 mg capsule 10 - 20 mg PO QID P RN ALCOHOL 09/17/13 History WITHDRAWAL #0 caps ranitidine HCl 150 mg tablet 150 mg PO BID #0 tabs History (Zantac) Allergies Allergy/AdvReac Type Severity Reaction Status Date / Time Fish Containing Products Allergy Intermediate Hives Verified 12/08/24 07:31 Visit Medications Acetaminophen (Acetaminophen 325 Mg Tablet) 650 mg PO Q6H PRN PRN Reason: pain and Fever >100.4 Stop: 01/07/25 11:52 Chlordiazepoxide HCl (Chlordiazepoxide Hcl 25 Mg Capsule) 50 mg PO Q8H [facility] Stop: 12/09/24 11:59 Folic Acid (Folic Acid 1 Mg Tablet) 1 mg PO BID [facility] Stop: 12/13/24 11:59 Lactated Ringer's (Lactated Ringers) 1,000 mls @ 100 mls/hr IV .Q10H [facility] Stop: 12/09/24 07:59 Lorazepam (Lorazepam 0.5 Mg Tablet) 0.5 mg PO Q4HR PRN PRN Reason: CIWA Score 2-6 Stop: 12/13/24 11:52 Lorazepam (Lorazepam 0.5 Mg Tablet) 1 mg PO Q4HR PRN PRN Reason: CIWA SCORE 7-11 Stop: 12/13/24 11:52 Lorazepam (Lorazepam 0.5 Mg Tablet) 2 mg PO Q4HR PRN PRN Reason: CIWA SCORE 12-15 Stop: 12/13/24 11:52 Losartan Potassium (Losartan Potassium 25 Mg Tablet) 25 mg PO QDAY [facility] Stop: 01/07/25 11:59 Ondansetron HCl (Ondansetron Inj 2 Mg/Ml Inj 2 Ml) 4 mg IV Q6H PRN; Protocol PRN Reason: NAUSEA OR VOMITING Stop: 01/07/25 11:52 Sennosides (Senna Tablet) 1 tab PO QDAY PRN; Protocol PRN Reason: constipation Stop: 01/07/25 11:52 Thiamine HCl (Thiamine 100 Mg Tablet) 100 mg PO BID [facility] Stop: 12/13/24 11:59 Discontinued Medications Lorazepam (Lorazepam 0.5 Mg Tablet) 1 mg PO X1 ONE Stop: 12/08/24 07:45 Last Admin: 12/08/24 07:52 Dose: 1 mg Lorazepam (Lorazepam 2 Mg/Ml Vial) 2 mg IVP X1 ONE Stop: 12/08/24 09:32 Last Admin: 12/08/24 09:45 Dose: 2 mg Assessment & Plan Plan 44-year-old male with past medical history of alcohol use disorder was admitted to the hospital on 12/08/2024 for alcohol withdrawal. #Alcohol withdrawal #Transaminitis #Hepatomegaly #Polysubstance use #Hx of alcohol use disorder Patient came in with complaints of alcohol withdrawal symptoms and that he last used alcohol last night around midnight. Patient was taking around 18 cans of beer per day for the last 10 days. Patient's alcohol was positive as well as meth Patient CIWA score was 5 on my assessment Plan: Ordered liver ultrasound which showed some hepatomegaly Ordered CIVA protocol Ordered scheduled Librium 50 every 8 hours Ordered fluids Patient shortly after being admitted to the hospital decided to leave AGAINST MEDICAL ADVICE. At this time all risks were discussed with the patient and he understood that risk could include possible and seizures if he did not have medical intervention at this time. Patient understood this risks and decided to leave AGAINST MEDICAL ADVICE. Case disclosed with Attending Dr. Bradley and My senior Dr. Whaley PGY2. Nagi Nicole PGY1 Attending Provider Attestation/Addendum The patient left AGAINST MEDICAL ADVICE before I could see the patient, very shortly after call for admission
[2024-12-08 12:26] LABS: Glucose Estimated Average 100 mg/dL (80-131); Hemoglobin A1C 5.1 % Hgb (4.8-6.0)
[2024-12-08] MEDS: FOLIC ACID 1 MG TABLET PO (12:39)
[2024-12-08] MEDS: chlordiazePOXIDE HCl 25 MG CAPSULE 50 MG PO (12:40)
[2024-12-08] MEDS: LOSARTAN POTASSIUM 25 MG TABLET PO (12:40)
[2024-12-08] MEDS: THIAMINE 100 MG TABLET PO (12:41)
[2024-12-08] MEDS: RINGERS LACTATED 1000 ML 1,000 ML 100 ML IV (12:44)
[2024-12-08 12:48] LABS: Ammonia < 10 uMol/L (11-32)
== END 2024-12-08 14:14 | disposition admitted as inpatient to this hospital (09) ==
LOC: SERX 11:49 → SERHOLD 12:16
PROVIDERS: Nurse Practitioner Family; Emergency Provider Emergency Medicine; PCP Physician Assistant
DX: F10.139 Alcohol abuse with withdrawal, unspecified (principal); R07.9 Chest pain, unspecified; F15.90 Other stimulant use, unspecified, uncomplicated
CPT/HCPCS: 36415; 71046; 76705; 80053; 80061; 80307; 80320; 82140; 83036; 83735; 83880; 84443; 84484; 85025; 85610; 85730; 87811; 93005; 96374; 99285; J2060; J7120; A9270; G0480

== ENCOUNTER 2025-06-06 07:27 | Emergency (ER) | payer MEDICAID, SELFPAY ==
[2025-06-06 07:49] VITALS: BP 137/91; PULSE 92; RESP 19; TEMP 36.7; O2SAT 96; BMI 38.6
--- NOTE | 2025-06-06 09:01 | PC.NURSE ---
PT LEFT AMA. AMA FORM SIGNED BY PT AND PROVIDER.
--- NOTE | 2025-06-06 09:05 | EDNOTE_ITS ---
<Statement entered by Jazz Brooks MD - 06/28/25 06:19> As co-signing physician, I was present and available for consult prn. I concur with the plan and care as documented by the midlevel provider. ED Skin Abcess FB-RME/HPI General Chief complaint: Skin/Abscess/Foreign Body Stated complaint: FOREIGN BODY IN PENIS Time Seen by Provider: 06/06/25 07:32 Arrival date/time: 06/06/25 07:27 This is a 44-year-old male that comes into the emergency room after making an incision to his penis. Patient states he had a marble placed into his penis approximately 10 years ago. Patient states that this marble was placed for pleasure. This marble was on the side of the penis not directly to the head of the penis. Patient states that he woke up this morning and he wanted to take it out. Patient reports that he did not put it in himself and somebody else implanted it. Patient reports making an incision with a razor to the side of his penis to try to get it out. Patient states that after trying to remove it himself he realized that it is pretty deep in there. Patient came to the emergency room to see if we can remove the marble out of his penis. Related Data Home Medications ?Medication ?Instructions ?Recorded ?Confirmed chlordiazepoxide HCl 10 mg capsule 10 - 20 mg PO QID P RN ALCOHOL 09/17/13 WITHDRAWAL #0 caps ranitidine HCl 150 mg tablet 150 mg PO BID #0 tabs (Zantac) Previous Rx's ?Medication ?Instructions ?Recorded omeprazole 20 mg capsule,delayed 20 mg PO QAM #30 tabs 09/17/13 release ciprofloxacin HCl 500 mg tablet 500 mg PO BID #14 tabs 02/15/23 (Cipro) diphenhydramine HCl 25 mg capsule 25 mg PO TID PRN all ergic reaction 11/01/24 #30 caps famotidine 20 mg tablet 20 mg PO QDAY #10 tabs 11/01 prednisone 50 mg tablet 50 mg PO BID #6 tabs 5 Allergies Allergy/AdvReac Type Severity Reaction Status Date / Time Fish Containing Products Allergy Intermediate Hives Verified 12/08/24 07:31 Review of Systems Review of Systems Systems Reviewed: All systems reviewed, normal except as documented Past Medical History Past Medical History ENDOCRINE: Positive Diabetes Mellitus Type 2 Social History SMOKING STATUS: Current every day smoker SUBSTANCE USE: methamphetamine ALCOHOL: Current ED Exam Narrative Physical exam: VITAL SIGNS: Reviewed. GENERAL APPEARANCE: Alert and interactive, follows commands, no acute distress HEAD AND FACE: Non-traumatic. ENT: PERRL, conjuctiva pink and clear, eyelid no trauma, Mucous membrane moist. NECK: Supple, nontender, no nuchal rigidity. CHEST: No tenderness, no crepitus, no paradoxical movement, no retractions. LUNGS: breathing even and unlabored HEART: Regular rate, cap refill less than 2 seconds ABDOMEN: Soft, nondistended, no guarding, nontender, no rebound :incision to the side of penis approx 1/2 cm in length NEUROLOGICAL: Gross motor function intact sensory function intact, Appropriate for age. MUSCULOSKELETAL: low back nontender, full range of motion. no midline tenderness, no meningismus, no step offs EXTREMITIES: No redness no swelling no skin breakdown on bilateral foot and leg. Distal neurovascular status intact bilateral foot SKIN: Color pink, dry, no rash Course Quality Measures none Vital Signs Vital signs: Vital Signs Temperature 98.0 F 06/06/25 07:49 Pulse Rate 92 06/06/25 07:49 Respiratory Rate 19 06/06/25 07:49 Blood Pressure 137/91 H 06/06/25 07:49 Pulse Oximetry (%) 96 06/06/25 07:49 Oxygen Delivery Method Room Air 06/06/25 07:49 Skin / Abscess / Foreign Body MDM Narrative MDM Narrative:: Case discussed with . I explained to patient we do not have a urologist on-call at this time. I explained to him that we can start trying to get him transferred to a facility that has urology on-call. Patient asked can I just drive over there instead. I explained to patient that he can do this but he would need to sign AGAINST MEDICAL ADVICE. We talked to patient at length and explained to him that we can transfer him to a facility that has urology we would just need to make a few calls. Patient does not want to wait to be transferred to another facility patient reports that he would like to leave and drive to a different facility that may have urology. Patient signed AGAINST MEDICAL ADVICE. We used a cnc operator. Patient verbalized understanding I explained to patient the benefits of staying here and being transferred by our facility and the risk of him driving and himself to a different facility all and including . Patient verbalized understanding and signed out AMA.. Patient data External records reviewed:: [facility] previous records Clinical information provided by:: patient Social determinants that could affect healthcare access:: none Patient has the following chronic illnesses:: none How is presenting disease/condition affected by chronic disease/condition?: no chronic disease Evaluation data The following diagnostics were reviewed and interpreted by me:: other (specify) (none ) Lab and/or radiology exams considered but not ordered:: see note Interpretation Summary: see note Medications / Prescriptions Medications or Prescriptions considered but not ordered:: none Medication administrations:: none Consultations Consultation(s) initiated? (list below): No Diagnosis Skin/Abscess Differential Diagnosis: abscess of skin or subcutaneous tissue, cellulitis and other (laceration to penis, avusion of skin ) Most likely diagnosis given after review of the tests above:: laceration Admission Indicated Admission indicated?: not indicated Admission Request Was there a request for admission?: No Disposition Plan Disposition Plan: Discharge Discharge Attestation Discharge Attestation: The patient and all family members were given an opportunity to ask questions and understood the discharge instructions. Discharge instructions specifically effects, indications for sooner follow up or return to the emergency department, and the expected course of current diagnosis. Patient condition: Stable Discharge Plan Plan Patient Disposition: Left Against Medical Advice Patient condition on transfer: Stable Prescriptions/Referrals Prescriptions/Med Rec: No Action ranitidine HCl [Zantac] 150 MG tablet 150 mg PO BID Qty: 0 chlordiazepoxide HCl 10 MG capsule 10 - 20 mg PO QID PRN (Reason: ALCOHOL WITHDRAWAL) Qty: 0 omeprazole 20 MG capsule,delayed release(DR/EC) 20 mg PO QAM Qty: 30 0RF ciprofloxacin HCl [Cipro] 500 mg tablet 500 mg PO BID Qty: 14 0RF prednisone 50 mg tablet 50 mg PO BID Qty: 6 0RF famotidine 20 mg tablet 20 mg PO QDAY Qty: 10 0RF diphenhydramine HCl 25 mg capsule 25 mg PO TID PRN (Reason: allergic reaction) Qty: 30 0RF Referrals: Audi Ray [Primary Care Provider] - In 1 week Problem List Clinical Impression: Laceration of penis Patient/Caregiver Discharge Instructions Discharge Activity: activity as tolerated Education Materials: ED Wound Check (No Infection) Print Language: [place] PA/[employer] Supervising Physician PA/[employer] Supervising Physician: [email or web address]
== END 2025-06-06 09:02 | disposition left against medical advice (07) ==
LOC: SERX 08:16
PROVIDERS: Emergency Provider Emergency Medicine; PCP Physician Assistant
DX: S31.21XA Laceration without foreign body of penis, initial encounter (principal); W26.8XXA Contact with other sharp object(s), not elsewhere classified, initial encounter; Z53.29 Procedure and treatment not carried out because of patient's decision for other reasons
CPT/HCPCS: 99281